=== PATIENT | male | born 1985 | race Caucasian/White ===

== ENCOUNTER 2017-07-23 13:45 | Emergency (ER) | payer MEDICAID, OTHER ==
[2017-07-23 14:15] VITALS: RESP 18; TEMP 97.9
--- NOTE | 2017-07-23 15:12 | EDPHY ---
H & P Stated Complaint: Lac to R thumb on utility knife Source: Patient Exam Limitations: No limitations - Personal History Current Tetanus Diphtheria and Acellular Pertussis (TDAP): Yes - Social History Smoking Status: Current every day smoker HPI/ROS: CHIEF COMPLAINT: Thumb laceration HISTORY OF PRESENT ILLNESS: Patient complains of laceration to the right thumb. This happened 1:00 p.m. today. 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 Moderate bleeding noted this stop with pressure. Some numbness over the proximal phalanx. No difficulty bending or straightening the finger. Minimal pain with not touching the area. No injury elsewhere. Tetanus is up-to-date. No other associated complaints or modifying factors. TIME OF INJURY: 1:00 p.m. today TETANUS STATUS: Less than 6 years ago MEDICAL/SURGICAL/SOCIAL HISTORY: No medical diagnoses are medications. No previous surgeries. Occasional smoker. 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 Symmetric radial pulses 2+. Brisk cap refill Neurological: A&O, sensory symmetric, strength symmetric. Good opposition and abduction of the thumb. Skin: Warm and dry, no rash. 2.5 cm laceration of the right thumb, dorsal lateral. No foreign body. No pulsatile bleeding. Neurovascular intact distally. Extremities: Tenderness over the area of laceration of the thumb. Full flexion extension noted. Full abduction and opposition of the thumb. DIFFERENTIAL DIAGNOSES: Including but not limited to laceration, complex laceration, laceration with tendon injury. MDM: 3:05 p.m. Superficial laceration on the right arm over the volar aspect. There is no foreign body. There is no injury to the tendon. Tetanus is up-to-date. He is neurovascular intact. I have administered anesthetic. Proceed with irrigation closure 3:35 p.m. Laceration of right thumb that has been repaired with sutures. Neurovascular intact pre and postprocedure. No evidence of foreign body or tendon injury. 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 ED precautions discussed. He is comfortable with this plan and discharged home stable condition, neurovascular intact with wound care instructions. PROCEDURE: Laceration repair Consent: Verbal Location: Right thumb, dorsal lateral Length of repair: 2.5 cm Complexity: Complex Layer involvement: Single Anesthesia: Local. 1% lidocaine without epinephrine. 5 mL Irrigation: Extensive Debridement: None Procedure description: Following good anesthesia, the wound was copiously irrigated. Wound bed was explored and there is no foreign body noted. There is no injury to the underlying tendon or vascular bundle Wound borders were approximated well with good hemostasis. Tolerated well without complication. Suture/Staple material: 5-0 Ethilon, 3 simple interrupted sutures Wound care: Routine as discussed Suture/Staple removal: 10 Days ED Precautions: Worsening pain. Erythema, edema, cyanosis, pallor, paresthesia or anesthesia. (Natanael Rodriguez) Constitutional: Initial Vital Signs Temperature (C) 36.6 C 07/23/17 14:10 Heart Rate 76 07/23/17 14:10 Respiratory Rate 18 07/23/17 14:10 Blood Pressure 102/71 07/23/17 14:10 O2 Sat (%) 97 07/23/17 14:10 O2 Delivery Mode Room Air Allergies/Adverse Reactions: No Known Allergies Allergy (Verified 07/23/17 14:13) Home Medications: Medication Instructions Recorded No Medications [NO HOME 0 ea [facility] [place]S] Cephalexin [Keflex (*)] 500 mg PO TID #30 cap 07/23/17 Medical Decision Making ED Course/Re-evaluation: I did not see this patient while he was in the emergency department. However his care was discussed with the PA while the patient was in the department. I agree with treatment plan and management (Franklin Cesar) Departure - Departure Disposition: Home, Routine, Self-Care Clinical Impression: Laceration of thumb without damage to nail Qualifiers: Encounter type: initial encounter Foreign body presence: without foreign body Laterality: right Qualified Code(s): S61.011A - Laceration without foreign body of right thumb without damage to nail, initial encounter Condition: Good Instructions: Care For Your Stitches (ED), Laceration (ED) Additional Instructions: 1. Daily wound care as discussed 2. Keflex prophylaxis as discussed 3. Follow up with established worker's compensation Clinic 4. ED precautions as discussed Referrals: NONE *PRIMARY CARE P,. [Primary Care Provider] - As per Instructions Poli Mooney MD [Medical Doctor] - As per Instructions Stand Alone Forms: Work Comp Follow Up Prescriptions: Cephalexin [Keflex (*)] 500 mg PO TID #30 cap
[2017-07-23 15:49] VITALS: BP 136/70; PULSE 73; O2SAT 95
== END 2017-07-23 15:49 | disposition home or self-care (01) ==
PROC: 0HQFXZZ Repair Right Hand Skin, External Approach (ICD-10-PCS; principal; 2017-07-23)
DX: S61.011A Laceration without foreign body of right thumb without damage to nail, initial encounter (principal); F17.200 Nicotine dependence, unspecified, uncomplicated; W45.8XXA Other foreign body or object entering through skin, initial encounter

== ENCOUNTER 2018-07-01 00:52 | Emergency (ER) | payer SELFPAY ==
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
[2018-07-01 01:36] VITALS: BP 131/74
== END 2018-07-01 01:36 | disposition home or self-care (01) ==
LOC: EDUNIT#
PROC: 0HQ0XZZ Repair Scalp Skin, External Approach (ICD-10-PCS; principal; 2018-07-01)
DX: S01.01XA Laceration without foreign body of scalp, initial encounter (principal); F10.920 Alcohol use, unspecified with intoxication, uncomplicated; F17.200 Nicotine dependence, unspecified, uncomplicated; Y04.0XXA Assault by unarmed brawl or fight, initial encounter; Y92.511 Restaurant or cafe as the place of occurrence of the external cause